=== PATIENT | female | born 1955 | race Caucasian/White ===

== ENCOUNTER 2024-02-01 08:19 | Emergency (ER) | payer MEDICARE, MEDICAID ==
[~2024-02-01] VITALS: Ht 162.5 cm
[2024-02-01] MEDS ORDERED: CIPROFLOXACIN H10 ML OPH (09:35)
[2024-02-01] MEDS ORDERED: PATADAY5 ML OD (09:35)
== END 2024-02-01 09:41 | disposition home or self-care (01) ==
LOC: ED 08:19
DX: H10.11 Acute atopic conjunctivitis, right eye (principal); I12.9 Hypertensive chronic kidney disease with stage 1 through stage 4 chronic kidney disease, or unspecified chronic kidney disease; N18.30 Chronic kidney disease, stage 3 unspecified